=== PATIENT | female | born 1995 | race Hispanic/Latino ===

== ENCOUNTER 2024-09-17 14:37 | Emergency (ER) | payer MEDICAID, SELFPAY ==
[2024-09-17] MEDS ORDERED: PREN1TAB11 PO (17:24)
[2024-09-17] MEDS ORDERED: OSEL75CA PO (17:24)
== END 2024-09-17 14:42 | disposition admitted as inpatient to this hospital (09) ==
LOC: M ED 14:37
DX: Z53.21 Procedure and treatment not carried out due to patient leaving prior to being seen by health care provider (principal)

== ENCOUNTER 2024-09-17 14:48 | Outpatient (CLI) ==
[~2024-09-17] VITALS: Ht 177.8 cm; Wt 80.7 kg
[2024-09-17] MEDS ORDERED: HOME MED LIST COMPLETE! XX SCH (15:10)
[2024-09-17 15:13] VITALS: BP 128/75
[2024-09-17] MEDS: ACETAMINOPHEN 500 MG TAB PO ONE (15:46)
[2024-09-17] MEDS ORDERED: PREN1TAB11 PO (17:24)
[2024-09-17] MEDS ORDERED: OSEL75CA PO (17:24)
[2024-09-17] MEDS: OSELTAMIVIR PHOSPHATE 75 MG CAP PO ONE (17:40)
== END 2024-09-17 17:50 | disposition home or self-care (01) ==
LOC: MERGE 14:48 → M LDO 14:48
PROVIDERS: ATTEND Advanced Practice Midwife
DX: O99.513 Diseases of the respiratory system complicating pregnancy, third trimester (principal); O34.219 Maternal care for unspecified type scar from previous cesarean delivery; J10.89 Influenza due to other identified influenza virus with other manifestations; Z3A.33 33 weeks gestation of pregnancy
CPT/HCPCS: 59025; G0463

== ENCOUNTER → 2024-10-04 | Outpatient (REF) | payer MEDICAID ==
[~2024-10-04] MED LIST: OSEL75CA PO; PREN1TAB11 PO
== END ==
LOC: M SFHCWAGY 17:23
PROVIDERS: ATTEND Obstetrics & Gynecology
DX: Z36.89 Encounter for other specified antenatal screening (principal); Z3A.36 36 weeks gestation of pregnancy

== ENCOUNTER 2024-10-18 07:30 | Inpatient (IN) | payer MEDICAID ==
[2024-10-18] VITALS (7 sets, daily range): BP systolic 109–126; BP diastolic 62–75; TEMP 97.9; O2SAT 97–98
[~2024-10-18] VITALS: Ht 170.2 cm; Wt 81.6 kg
[2024-10-18] MEDS: LACTATED RINGER'S 1000 ML IV STA (10:18)
[2024-10-18] MEDS: ceFAZolin SOD 2 GM in IV 1 EA IV ONE (10:20)
[2024-10-18] MEDS ORDERED: TRANEXAMIC ACID INJection 1,000 MG in NS 100 ML IV PRN (10:20)
[2024-10-18] MEDS ORDERED: METHYLERGONOVINE MALEATE 0.2MG/ML 1ML VIAL IM PRN (10:20)
[2024-10-18] MEDS ORDERED: OXYTOCIN INJ 10UNITS/ML 1ML VIAL IM PRN (10:20)
[2024-10-18] MEDS ORDERED: CARBOPROST TROMETHAMINE 250 MCG/ML AMP IM PRN (10:20)
[2024-10-18] MEDS ORDERED: OXYTOCIN DRIP 30 UNITS in IV 1 EA IV PRN (10:20)
[2024-10-18] MEDS: BICITRA 30ML SOLN UDC PO ONE (10:20)
[2024-10-18 10:53] LABS: HEMATOCRIT 36.8 % (36.0-47.0); HEMOGLOBIN 12.3 g/dl (12.0-15.5); MEAN CORPUSCULAR HEMOGLOBIN 29.1 pg (27.0-33.0); MEAN CORPUSCULAR HGB CONC 33.4 g/dl (32.0-36.5); MEAN CORPUSCULAR VOLUME 87.2 fl (80.0-96.0); PLATELET COUNT, AUTOMATED 223 10^3/uL (150-450); RED BLOOD COUNT 4.22 10^6/uL (4.00-5.40); WHITE BLOOD COUNT 8.5 10^3/uL (4.0-10.0)
[2024-10-18] MEDS ORDERED: ONDANSETRON 4MG 2ML VIAL As Ordered ONE (11:14)
[2024-10-18] MEDS ORDERED: KETOROLAC 60MG 2ML VIAL As Ordered ONE (11:14)
[2024-10-18] MEDS ORDERED: ACETAMINOPHEN 1000MG/100ML IV BAG As Ordered ONE (11:14)
[2024-10-18] MEDS ORDERED: MORPHINE PRES-FREE INJ 10 MG/10 ML VIAL As Ordered ONE (11:14)
[2024-10-18] MEDS ORDERED: OXYTOCIN 30UNITS IN 0.9% NaCl 500ML IV BAG As Ordered ONE (11:17)
[2024-10-18] MEDS ORDERED: HOME MED LIST COMPLETE! XX SCH (11:20)
[2024-10-18] MEDS: LR 1,000 ML IV SCH ×2 (11:31→13:30)
[2024-10-18 11:54] LABS: HIV 1&2 SCREEN NEGATIVE (NEGATIVE)
[2024-10-18] MEDS ORDERED: ePHEDrine SULFATE 25 MG/5 ML(5MG/ML) SYRINGE As Ordered ONE (11:54)
[2024-10-18] MEDS: OXYTOCIN DRIP 30 UNITS in IV 1 EA IV SCH (12:15)
[2024-10-18] MEDS ORDERED: diphenhydrAMINE 50MG/ML VIAL IV PRN (13:00)
[2024-10-18] MEDS ORDERED: oxyCODONE 5MG TAB PO PRN (13:00)
[2024-10-18] MEDS ORDERED: HYDROMORPHONE HCL 0.5 MG/ 0.5 ML SYRINGE IV PRN (13:00)
[2024-10-18] MEDS ORDERED: NALOXONE INJ 0.4MG/1ML VIAL IV PRN ×2 (13:00)
[2024-10-18] MEDS ORDERED: ONDANSETRON 4MG 2ML VIAL IV PRN (13:00)
[2024-10-18] MEDS ORDERED: fentaNYL 100 MCG/2 ML INJECTION IV PRN (13:00)
[2024-10-18] MEDS ORDERED: **NOTE PATIENT COMMENT** MISC XX SCH (13:00)
[2024-10-18] MEDS ORDERED: RHOGAM 300MCG (1500IU) INJ IM SCH (13:10)
[2024-10-18] MEDS ORDERED: MOM 30ML SUSPENSION UDC PO PRN (13:10)
[2024-10-18] MEDS ORDERED: CALCIUM CARBONATE 500 MG CHEW U/D PO PRN (13:10)
[2024-10-18] MEDS ORDERED: PERCOCET 5MG/325MG TAB PO PRN (13:10)
[2024-10-18] MEDS: DOCUSATE SODIUM 100MG CAPSULE PO SCH (15:41)
[2024-10-18] MEDS: PRENATAL VITAMINS CHEWABLE TABLET PO SCH (15:54)
[2024-10-18] MEDS: SLF 3 ML SYR IV SCH (15:54)
[2024-10-18] MEDS: ePHEDrine SULFATE 25 MG/5 ML(5MG/ML) SYRINGE IVP ONE (15:56)
[2024-10-18] MEDS: ONDANSETRON 4MG 2ML VIAL IV PRN (16:15)
[2024-10-18] MEDS: METOCLOPRAMIDE INJ 10MG/2ML VIAL IV PRN (18:03)
[2024-10-18] MEDS: KETOROLAC 30 MG/ML 1ML VIAL IV SCH (18:04)
[2024-10-18] MEDS ORDERED: IBUP80TA PO (19:05)
[2024-10-18] MEDS ORDERED: COLA100C5 PO (19:05)
[2024-10-18] MEDS: PERCOCET 5MG/325MG TAB PO PRN (22:34)
[2024-10-19 01:43] VITALS: BP 111/57; O2SAT 96
[2024-10-19 06:00] VITALS: BP 107/65; O2SAT 97
[2024-10-19 07:49] LABS: MEAN CORPUSCULAR HEMOGLOBIN 29.8 pg (27.0-33.0); MEAN CORPUSCULAR HGB CONC 33.7 g/dl (32.0-36.5); MEAN CORPUSCULAR VOLUME 88.6 fl (80.0-96.0); PLATELET COUNT, AUTOMATED 178 10^3/uL (150-450); RED BLOOD COUNT 3.32 10^6/uL (4.00-5.40)
[2024-10-19 07:50] LABS: HEMATOCRIT 29.4 % (36.0-47.0); HEMOGLOBIN 9.9 g/dl (12.0-15.5)
[2024-10-19 10:00] VITALS: BP 110/56; O2SAT 100
[2024-10-19 14:30] VITALS: BP 124/72; O2SAT 98
[2024-10-19] MEDS: SIMETHICONE 80MG CHEW TAB PO PRN (17:02)
[2024-10-19] MEDS: IBUPROFEN 800 MG TAB PO SCH (17:04)
[2024-10-19 18:00] VITALS: BP 118/66; O2SAT 98
[2024-10-19 22:07] VITALS: BP 119/65; O2SAT 98
[2024-10-20 02:07] VITALS: BP 114/64; O2SAT 98
[2024-10-20 06:08] VITALS: BP 123/64; O2SAT 99
[2024-10-20] MEDS ORDERED: METAL LOCK LOOP XX ONE (08:12)
[2024-10-20] MEDS: MEASLES,MUMPS,RUBELLA VACCINE INJ (MMR-II) SC.IMMUN ONE (09:00)
[2024-10-20 10:00] VITALS: BP 117/69; O2SAT 97
== END 2024-10-20 13:20 | disposition home or self-care (01) | DRG 540 ==
LOC: M LDI 09:53 → M OBS 14:23
PROVIDERS: ADMIT Obstetrics & Gynecology; ATTEND Obstetrics & Gynecology
PROC: 10D00Z1 Extraction of Products of Conception, Low, Open Approach (ICD-10-PCS; principal; 2024-10-18 09:00)
DX: O34.212 Maternal care for vertical scar from previous cesarean delivery (principal); Z3A.38 38 weeks gestation of pregnancy; Z37.0 Single live birth

== ENCOUNTER → 2024-12-17 | Outpatient (REF) | payer MEDICAID, OTHER ==
[~2024-12-17] MED LIST changes: +COLA100C5 PO; +IBUP80TA PO
[2024-12-17 13:04] LABS: HEMATOCRIT 37.9 % (36.0-47.0); HEMOGLOBIN 12.4 g/dl (12.0-15.5); MEAN CORPUSCULAR HEMOGLOBIN 28.8 pg (27.0-33.0); MEAN CORPUSCULAR HGB CONC 32.7 g/dl (32.0-36.5); MEAN CORPUSCULAR VOLUME 87.9 fl (80.0-96.0); PLATELET COUNT, AUTOMATED 313 10^3/uL (150-450); RED BLOOD COUNT 4.31 10^6/uL (4.00-5.40)
[2024-12-17 13:09] LABS: ALBUMIN 4.2 G/DL (3.2-5.2); BILIRUBIN,TOTAL 0.8 MG/DL (0.3-1.2); CALCIUM LEVEL 9.7 MG/DL (8.5-10.1); CHOLESTEROL RISK RATIO 3.43 (<5); CREATININE FOR GFR 0.99 MG/DL (0.55-1.30); GLOMERULAR FILTRATION RATE 79.7 (>60); HDL CHOLESTEROL 61.1 MG/DL (>40); LDL CHOLESTEROL 130.9 MG/DL (<100); NON-HDL-C 148.9 MG/DL; TOTAL PROTEIN 7.6 G/DL (5.7-8.2)
[2024-12-17 13:10] LABS: THYROID STIMULATING HORMONE 0.931 uIU/ML (0.55-4.78)
[2024-12-17 13:18] LABS: HEMOGLOBIN A1c 5.2 % (4.0-6.0)
== END ==
LOC: M LAB REF 12:20
PROVIDERS: ATTEND Student in an Organized Health Care Education/Training Program
DX: N92.6 Irregular menstruation, unspecified (principal); Z68.23 Body mass index [BMI] 23.0-23.9, adult

== ENCOUNTER → 2025-04-23 | Outpatient (REF) | payer OTHER ==
[~2025-04-23] MED LIST changes: +OMEP-173 PO; +ONDA-282 PO
[2025-04-23 16:16] LABS: LUTEINIZING HORMONE 7.9 mIU/ML
[2025-04-23 16:17] LABS: ESTRADIOL 107.5 PG/ML; PROLACTIN 8.26 NG/ML
== END ==
LOC: M LAB REF 15:48
PROVIDERS: ATTEND Student in an Organized Health Care Education/Training Program
DX: N92.6 Irregular menstruation, unspecified (principal)